=== PATIENT | male | born 1950 | race Caucasian/White ===

== ENCOUNTER 2022-12-16 06:48 | Emergency (ER) | payer OTHER ==
[2022-12-16 07:34] VITALS: RESP 18; BMI 25.1
[2022-12-16] MEDS ORDERED: ACETAMINOPHEN 500 MG TABLET (FP) PO ONE (09:11)
[2022-12-16] MEDS ORDERED: DIPHTH,PERTUSS(ACELL),TET 0.5 ML DISP.SYRIN IM ONE ×2 (09:11→09:33)
[2022-12-16] MEDS ORDERED: CARBIDOPA/LEVODOPA 25/100 TABLET (FP) PO ONE (09:12)
[2022-12-16] MEDS ORDERED: ACETAMINOPHEN 325 MG TABLET (FP) ONE (09:32)
[2022-12-16] MEDS ORDERED: CARBIDOPA/LEVODOPA 25/100 TABLET (FP) ONE (09:33)
[2022-12-16] MEDS ORDERED: DEXTROSE 50%-WATER 25 GM/50 ML DISP.SYRIN ONE (09:57)
[2022-12-16] MEDS ORDERED: NITROGLYCERIN 2% OINTMENT - 1GM PACKET TD ONE (20:53)
[2022-12-17] MEDS ORDERED: MELATONIN 5 MG TABLETS PO ONE (00:14)
[2022-12-17] MEDS ORDERED: MELATONIN 5 MG TABLETS ONE (00:21)
[2022-12-17 02:17] VITALS: BP 116/65; PULSE 65; TEMP 98.2
== END 2022-12-17 02:38 | disposition home or self-care (01) ==
LOC: JER 06:48
PROC: 3E0234Z Introduction of Serum, Toxoid and Vaccine into Muscle, Percutaneous Approach (ICD-10-PCS; principal; 2022-12-16)
DX: S00.81XA Abrasion of other part of head, initial encounter (principal); S06.0X9A Concussion with loss of consciousness of unspecified duration, initial encounter; W19.XXXA Unspecified fall, initial encounter
CPT/HCPCS: 70450-TC; 71045-TC-FY; 72125-TC; 72170-TC-FY; 73521-TC-FY; 90471; 90715; 99284-25